=== PATIENT | male | born 1985 | race Caucasian/White ===

== ENCOUNTER 2017-12-06 11:39 | Inpatient (IN) | payer SELFPAY ==
[~2017-12-06] VITALS: Ht 185.4 cm; Wt 69.9 kg
[2017-12-06] MEDS: NICOTINE 21 MG/24 HR PATCH T-DERMAL SCH (16:30)
[2017-12-06] MEDS ORDERED: MAGNESIUM HYDROXIDE SUSP 30 ML CUP PO PRN (16:30)
[2017-12-06] MEDS ORDERED: diphenhydrAMINE HCL 50 MG CAP PO PRN (16:30)
[2017-12-06] MEDS ORDERED: ALUMINUM/MAGNESIUM/SIMETH 30 ML CUP PO PRN (16:30)
[2017-12-06 16:40] VITALS: BP 123/72; PULSE 98; RESP 18; TEMP 98.3; O2SAT 94
[2017-12-06] MEDS: hydrOXYzine HCL 50 MG TAB PO PRN ×2 (17:55→23:56)
[2017-12-07 05:40] VITALS: BP 128/68; PULSE 70; RESP 18; TEMP 98; O2SAT 99
[2017-12-07] MEDS: hydrOXYzine HCL 50 MG TAB PO PRN ×2 (06:33→13:25)
[2017-12-07 08:39] LABS: BICARBONATE 25.1 MEQ/L (21.0-32.0); BLOOD UREA NITROGEN 9 MG/DL (7-18); CALCIUM 8.8 MG/DL (8.5-10.1); CHLORIDE 105 MEQ/L (98-107); CREATININE 0.64 MG/DL (0.60-1.30); GLOMERULAR FILTRATION RATE 146 ML/MIN (>89); GLUCOSE,RANDOM 88 MG/DL (74-106); SODIUM (NA) 141 MEQ/L (136-145)
[2017-12-07 08:40] LABS: CHOLESTEROL 165 MG/DL (120-200)
[2017-12-07 08:49] LABS: CHOLESTEROL/ HDL RATIO 6.25 RATIO; HDL CHOLESTEROL 26.4 MG/DL (40.0-60.0); LDL CHOLESTEROL 115 MG/DL (0-99); TRIGLYCERIDES 116 MG/DL (42-150)
[2017-12-07] MEDS: NICOTINE 21 MG/24 HR PATCH T-DERMAL SCH (09:00)
[2017-12-07] MEDS ORDERED: REMOVE OLD PATCH T-DERMAL SCH (09:00)
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
[2017-12-07] MEDS ORDERED: LOPERAMIDE HCL 2 MG CAP PO PRN (12:00)
[2017-12-07] MEDS ORDERED: cloNIDine HCL 0.1 MG TAB PO PRN (12:00)
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
[2017-12-07 16:23] LABS: HEMOGLOBIN A1C 5.8 % (4.3-6.0)
[2017-12-07 17:06] VITALS: BP 132/77; PULSE 97; RESP 17; TEMP 98.7; O2SAT 99
[2017-12-07] MEDS ORDERED: RESP: ALBUTEROL 2.5 MG/IPRATROPIUM 0.5 MG NEB (SCH) NEB (20:00)
--- NOTE | 2017-12-09 01:33 | EKG ---
Date Performed: 12/07/2017 Time Performed: 13:31:48 PTAGE: 32 years EKG: Sinus rhythm NORMAL ECG NO PREVIOUS TRACING DOCTOR: Carlita Majano Interpretating Date/Time 12/09/2017 01:31:35
== END 2017-12-07 17:20 | disposition left against medical advice (07) | DRG 894 ==
LOC: H260 15:06
PROVIDERS: ADMIT Psychiatry & Neurology Psychiatry; ATTEND Psychiatry & Neurology Psychiatry
DX: F11.20 Opioid dependence, uncomplicated (principal); F41.1 Generalized anxiety disorder; G89.21 Chronic pain due to trauma; J45.909 Unspecified asthma, uncomplicated; M54.5 Low back pain; Z59.0 Homelessness; Z76.5 Malingerer [conscious simulation]
CPT/HCPCS: 80048; 80061; 83036; 84439; 84443; 93005

== ENCOUNTER 2017-12-07 20:03 | Emergency (ER) | payer SELFPAY ==
--- NOTE | 2017-12-07 20:49 | PD ---
HPI Chief Complaint: Medical Clearance Time Seen by Provider: 20:44 Travel History International Travel<30 days: No Contact w/Intl Traveler<30days: No Traveled to known affect area: No History of Present Illness HPI 32-year-old white male returns to the ER after being discharged this evening at 5:30 from the psychiatric [facility]. He had been admitted for adjustment reaction due to substance abuse. He was transported to the [facility] in [place]. The patient presented by nonemergent transport. At the time of his intake he was unable to find his identification ear for the refused his admission. Nonemergent transport brought him back to our facility from [place]. The patient here now has found his identification. The patient has no suicidal homicidal ideation. The patient states that he is hungry and would like something to drink. He also would like a warm blanket a place to lay down. Patient has also requested that we call his mother to come pick him up. He states that she will not listen to him. PFSH Past Medical History Narrative Medical Polysubstance abuse Cardiovascular Problems: No Genitourinary: No Musculoskeletal: No Neurologic: No Reproductive: No Respiratory: No Tetanus Vaccination: < 5 Years Social History Alcohol Use: Yes Tobacco Use: Yes Substance Use: Yes (STATES HE USES HEROINE ONLY) Allergies-Medications (Allergen,Severity, Reaction): Coded Allergies: No Known Allergies (Verified Allergy, Unknown, 12/06/17) Review of Systems General / Constitutional: No: Fever Eyes: No: Visual changes HENT: No: Headaches Cardiovascular: No: Chest Pain or Discomfort Respiratory: Positive: Cough, Wheezing, No: Shortness of Breath Gastrointestinal: No: Abdominal Pain Genitourinary: No: Dysuria Musculoskeletal: No: Pain Skin: No Rash Neurologic: No: Weakness Psychiatric: Positive: Mood Disorder, Substance Abuse, No: Anxiety, Depression , Suicidal Ideations, Disorder of Thought, Homicidal Ideation Endocrine: No: Polydipsia Hematologic/Lymphatic: No: Easy Bruising Physical Exam Narrative GENERAL: Well-nourished, well-developed patient. SKIN: Warm and dry. HEAD: Normocephalic and atraumatic. EYES: No scleral icterus. No injection or drainage. ENT: No nasal drainage noted. Mucous membranes pink. Airway patent. NECK: Supple, trachea midline. Moves head freely without obvious discomfort. CARDIOVASCULAR: Regular rate and rhythm without murmurs, gallops, or rubs. RESPIRATORY: Few fine next very wheeze. No Rales or rhonchi. GASTROINTESTINAL: Abdomen soft, non-tender, nondistended. EXTREMITIES: No cyanosis or edema. BACK: Nontender without obvious deformity. No CVA tenderness. NEURO: Patient is alert and oriented. no sensorimotor deficits. Nonfocal. Normal speech. PSYCH: No delusions. No auditory or visual hallucinations. Data Data Orders Orders Ed Discharge Order (12/07/17 20:44) MDM Medical Decision Making Medical Screen Exam Complete: Yes Emergency Medical Condition: Yes Medical Record Reviewed: Yes Differential Diagnosis MDM: High Differential diagnoses: Schizophrenia, schizoaffective disorder, bipolar, anxiety, depression, adjustment reaction, mood disorder NOS, ODD, depressive disorder NOS, dementia, dementia with agitation, psychosis NOS, substance induced mood disorder, DMDD, Asperger syndrome, infection,electrolyte abnormality, malingering. Narrative Course The patient does not require inpatient management. He was just discharged from our facility at 5:30 today and was declined admission to the [facility] in [place] due to lack of identification. Patient now is found is identification. There is no indication for readmission. The patient is advised that we will not render him transportation again. The patient has agreed to follow-up as an outpatient he was given something to eat at time of discharge. He is advised to contact his mother for follow-up with outpatient options that he is given today. Diagnosis Primary Impression: Malingering Additional Impression: Opiate dependence Qualified Codes: F11.20 - Opioid dependence, uncomplicated Patient Instructions: General Instructions Departure Forms: Tests/Procedures Additional Instructions: PATIENT DISCHARGED HOME WITH COMMUNITY RESOURCES. PATIENT AGREES TO FOLLOW-UP WITH OUTPATIENT RESOURCES. PATIENT DENIES SELF-HARM AT THIS TIME. Med/Other Pt SpecificInfo: No Meds Exist/No RX given Disposition: DISCHARGE HOME Condition: Stable Brijesh Lopez Dec 07, 2017 20:49
== END 2017-12-07 21:05 | disposition home or self-care (01) ==
LOC: NEPJ 20:03
DX: Z76.5 Malingerer [conscious simulation] (principal); F43.20 Adjustment disorder, unspecified; F11.20 Opioid dependence, uncomplicated; F19.19 Other psychoactive substance abuse with unspecified psychoactive substance-induced disorder
CPT/HCPCS: 99281